=== PATIENT | female | born 1985 | race Two or more races ===

== ENCOUNTER 2017-08-18 15:07 | Emergency (ER) | payer OTHER ==
[~2017-08-18] VITALS: Ht 170.2 cm; Wt 118.3 kg
[2017-08-18 16:10] LABS: BASOPHILS # (AUTO) 0.06 x10^3/uL (0-0.1); BASOPHILS % (AUTO) 1 % (0-1); EOSINOPHILS # (AUTO) 0.11 x10^3/uL (0-0.4); EOSINOPHILS % (AUTO) 1 % (1-7); LYMPHOCYTES # (AUTO) 3.42 x10^3/uL (1-3.4); LYMPHOCYTES % (AUTO) 27 % (22-44); MD NO; MEAN CORPUSCULAR HEMOGLOBIN 26.4 pg (27.0-34.8); MEAN CORPUSCULAR HGB CONC 33.2 g/dL (32.4-35.8); MEAN CORPUSCULAR VOLUME 79.4 fL (80-100); MEAN PLATELET VOLUME 8.3 fL (7.4-10.4); MONOCYTES % (AUTO) 6 % (2-9); NEUTROPHILS # (AUTO) 8.28 x10^3/uL (1.8-6.8); NEUTROPHILS % (AUTO) 65 % (42-75); PLATELET COUNT 335 x10^3/uL (130-400); RED BLOOD COUNT 5.32 x10^6/uL (3.82-5.3); RED CELL DISTRIBUTION WIDTH 15.6 % (9.6-15.2)
[2017-08-18 16:19] LABS: ALANINE AMINOTRANSFERASE 25 U/L (12-78); ALBUMIN 3.6 g/dL (3.4-5.0); ANION GAP 7 mmol/L (5-15); CALCIUM 8.8 mg/dL (8.5-10.1); CHLORIDE 110 mmol/L (98-107)
[2017-08-18] MEDS ORDERED: ONDANSETRON ODT 4 MG ONE (16:21)
[2017-08-18] MEDS ORDERED: MORPHINE SULFATE 4 MG/ML, 1ML ONE (16:21)
[2017-08-18 16:22] LABS: MICROSCOPIC NOT IND
[2017-08-18 16:24] LABS: ALKALINE PHOSPHATASE 142 U/L (45-117); BILIRUBIN,TOTAL 0.5 mg/dL (0.2-1.0); CREATININE 0.68 mg/dL (0.55-1.02); TOTAL PROTEIN 8.4 g/dL (6.4-8.2)
[2017-08-18 16:26] LABS: CULTURE INDICATED? NO
[2017-08-18] MEDS ORDERED: SODIUM CHLORIDE 0.9% 1,000ML IVBOLUS ONE (16:30)
[2017-08-18] MEDS ORDERED: ONDANSETRON ODT 4 MG PO ONE (16:30)
[2017-08-18] MEDS ORDERED: SODIUM CHLORIDE FLUSH 10ML SYR IVF ONE (16:30)
[2017-08-18] MEDS ORDERED: MORPHINE SULFATE 4 MG/ML, 1ML IVPush PRN (16:30)
[2017-08-18] MEDS ORDERED: ONDANSETRON 2MG/ML, 2ML IVPush ONE (16:30)
[2017-08-18 18:33] VITALS: BP 128/73
== END 2017-08-18 18:35 | disposition home or self-care (01) ==
LOC: ED 18:20
DX: R10.31 Right lower quadrant pain (principal)
CPT/HCPCS: 36415; 74177; 76830; 80053; 81003; 84703; 85025; 96361; 96374; 99285; J7030; Q0162

== ENCOUNTER 2018-08-13 20:28 | Emergency (ER) | payer OTHER, MEDICAID ==
[~2018-08-13] VITALS: Ht 170.2 cm; Wt 104.6 kg
--- NOTE | 2018-08-13 20:45 | NUR ---
LATE ENTRY FOR 20:45. PT REPORTS 10/10 CENTER CHEST PAIN THAT COMES AND GOES SINCE THIS MORNING PT REPORTS SHE HAS ALSO HAD A COUGH. PT'S AOX4. RESPS EVEN AND UNLABORED. ALL MONITORS IN PLACE. CALL LIGHT WITHIN REACH.
--- NOTE | 2018-08-13 21:00 | NUR ---
PT IN XRAY.
[2018-08-13 21:09] LABS: BASOPHILS # (AUTO) 0.04 x10^3/uL (0-0.1); BASOPHILS % (AUTO) 0 % (0-1); EOSINOPHILS # (AUTO) 0.25 x10^3/uL (0-0.4); EOSINOPHILS % (AUTO) 2 % (1-7); LYMPHOCYTES # (AUTO) 2.94 x10^3/uL (1-3.4); LYMPHOCYTES % (AUTO) 27 % (22-44); MD NO; MEAN CORPUSCULAR HEMOGLOBIN 27.3 pg (27.0-34.8); MEAN CORPUSCULAR HGB CONC 32.9 g/dL (32.4-35.8); MEAN CORPUSCULAR VOLUME 82.9 fL (80-100); MEAN PLATELET VOLUME 8.4 fL (7.4-10.4); MONOCYTES # (AUTO) 0.89 x10^3/uL (0.2-0.8); MONOCYTES % (AUTO) 8 % (2-9); NEUTROPHILS # (AUTO) 6.67 x10^3/uL (1.8-6.8); NEUTROPHILS % (AUTO) 62 % (42-75); PLATELET COUNT 310 x10^3/uL (130-400); RED BLOOD COUNT 4.63 x10^6/uL (3.82-5.3); RED CELL DISTRIBUTION WIDTH 14.9 % (9.6-15.2)
[2018-08-13 21:16] LABS: ALANINE AMINOTRANSFERASE 23 U/L (12-78); ALBUMIN 3.5 g/dL (3.4-5.0); ANION GAP 7 mmol/L (5-15); CALCIUM 8.6 mg/dL (8.5-10.1); CHLORIDE 110 mmol/L (98-107); CREATININE 0.66 mg/dL (0.55-1.02)
[2018-08-13 21:20] LABS: ALKALINE PHOSPHATASE 120 U/L (45-117); TOTAL PROTEIN 7.8 g/dL (6.4-8.2); TROPONIN I < 0.015 ng/mL (0.000-0.045)
[2018-08-13 21:24] LABS: BILIRUBIN,TOTAL < 0.1 mg/dL (0.2-1.0)
--- NOTE | 2018-08-13 22:00 | NUR ---
PT RESTING IN [facility]. PT'S AOX4. RESPS EVEN AND UNLABORED. ALL MONITORS IN PLACE. CALL LIGHT WITHIN REACH.
[2018-08-13 22:39] VITALS: BP 115/70
--- NOTE | 2018-08-13 22:39 | NUR ---
PT GIVEN DC INSTRUCTIONS AND SCRIPTS. PT EDUCATED REGARDING DC MEDICATIONS. PT AMB TO DC WITH STEADY GAIT. NO ACUTE DISTRESS AT DC.
== END 2018-08-13 22:41 | disposition home or self-care (01) ==
LOC: ED 21:08
DX: R07.89 Other chest pain (principal); J00 Acute nasopharyngitis [common cold]
CPT/HCPCS: 36415; 71046; 80053; 84484; 85025; 93005; 99284

== ENCOUNTER 2020-02-02 12:16 | Emergency (ER) | payer OTHER ==
[~2020-02-02] VITALS: Ht 170.2 cm; Wt 114.0 kg
--- NOTE | 2020-02-02 13:52 | NUR ---
TO ROOM FROM LOBBY. NAD.
--- NOTE | 2020-02-02 13:55 | NUR ---
ASSUMED CARE OF PATIENT. PATIENT C/O A COUGH AND FEVERS. PT IS ON AMOXICILLIN FOR A EAR INFECTION. VS STABLE. NO ACUTE DISTRESS NOTED. CALL LIGHT IN PLACE. WILL CONTINUE TO MONITOR.
--- NOTE | 2020-02-02 13:58 | NUR ---
DR LACY IN ROOM
--- NOTE | 2020-02-02 14:20 | NUR ---
BOTH BLOOD CULTURES DRAWN BEFORE ABX GIVEN
[2020-02-02] MEDS ORDERED: CEFTRIAXONE PMX 1GM/50ML 50 ML ONE (14:22)
[2020-02-02 14:29] LABS: BASOPHILS % (AUTO) 0 % (0-1); EOSINOPHILS % (AUTO) 0 % (1-7); LYMPHOCYTES % (AUTO) 24 % (22-44); MEAN CORPUSCULAR HEMOGLOBIN 27.8 pg (27.0-34.8); MEAN CORPUSCULAR HGB CONC 33.1 g/dL (32.4-35.8); MONOCYTES % (AUTO) 8 % (2-9); NEUTROPHILS % (AUTO) 68 % (42-75); PLATELET COUNT 237 x10^3/uL (130-400); RED BLOOD COUNT 5.21 x10^6/uL (3.82-5.3); RED CELL DISTRIBUTION WIDTH 14.1 % (9.6-15.2)
[2020-02-02] MEDS ORDERED: CEFTRIAXONE PMX 1GM/50ML 50 ML IVPB ONE (14:30)
[2020-02-02] MEDS ORDERED: SODIUM CHLORIDE 0.9% 1,000ML IVBOLUS ONE (14:30)
[2020-02-02] MEDS ORDERED: SODIUM CHLORIDE FLUSH 10ML SYR IVF ONE (14:30)
[2020-02-02 14:35] LABS: ALBUMIN 3.3 g/dL (3.4-5.0); ANION GAP 8 mmol/L (5-15); CALCIUM 8.7 mg/dL (8.5-10.1); CHLORIDE 106 mmol/L (98-107); CREATININE 0.72 mg/dL (0.55-1.02)
[2020-02-02 14:39] LABS: MD NO
[2020-02-02] MEDS ORDERED: IBUPROFEN 600 MG TABLET PO ONE (15:00)
[2020-02-02] MEDS ORDERED: IBUPROFEN 200 MG TABLET ONE (15:11)
--- NOTE | 2020-02-02 15:16 | NUR ---
PT WATCHING TV IN ROOM. VS STABLE. NO ACUTE DISTRESS NOTED. CALL LIGHT IN PLACE. WILL CONTINUE TO MONITOR.
--- NOTE | 2020-02-02 15:36 | NUR ---
DR LACY HAS UPDATED PATIENT. PATIENT TO BE DC.
[2020-02-02 16:26] VITALS: BP 122/78
== END 2020-02-02 16:28 | disposition home or self-care (01) ==
LOC: ED 13:30
DX: U07.1 COVID-19 (principal); J12.89 Other viral pneumonia; R00.0 Tachycardia, unspecified
CPT/HCPCS: 36415; 71045; 80048; 82040; 83605; 85025; 87040; 87635; 93005; 96365; 99283; J0696; J7030

== ENCOUNTER 2020-02-04 11:15 | Inpatient (IN) | payer OTHER ==
[~2020-02-04] VITALS: Ht 170.2 cm; Wt 119.8 kg
[2020-02-04] MEDS ORDERED: ONDANSETRON 2MG/ML, 2ML ONE (11:45)
[2020-02-04] MEDS ORDERED: SODIUM CHLORIDE 0.9% 1,000ML IVBOLUS ONE (12:00)
[2020-02-04] MEDS ORDERED: SODIUM CHLORIDE FLUSH 10ML SYR IVF ONE (12:00)
[2020-02-04] MEDS ORDERED: ONDANSETRON 2MG/ML, 2ML IVPush ONE (12:00)
--- NOTE | 2020-02-04 12:21 | NUR ---
PIV PLACED, LABS DRAWN AND SENT TO LAB WITH LAB STICKER. BODY WORK [employer]IMMER PER JUN. IVF RUNNING. PT CONNECTED TO MONITORING. CALL LIGHT IN REACH. EKG COMPLETE. PT RESTING ON GURNEY. ARCHER.
[2020-02-04 12:24] LABS: BASOPHILS % (AUTO) 0 % (0-1); EOSINOPHILS % (AUTO) 0 % (1-7); LYMPHOCYTES % (AUTO) 28 % (22-44); MEAN CORPUSCULAR HEMOGLOBIN 27.7 pg (27.0-34.8); MEAN PLATELET VOLUME 7.9 fL (7.4-10.4); MONOCYTES % (AUTO) 11 % (2-9); NEUTROPHILS % (AUTO) 61 % (42-75); PLATELET COUNT 241 x10^3/uL (130-400); RED BLOOD COUNT 4.82 x10^6/uL (3.82-5.3)
[2020-02-04 12:29] LABS: ALBUMIN 3.1 g/dL (3.4-5.0); ANION GAP 5 mmol/L (5-15); CALCIUM 8.4 mg/dL (8.5-10.1); CHLORIDE 108 mmol/L (98-107); CREATININE 0.61 mg/dL (0.55-1.02)
[2020-02-04 12:34] LABS: MD NO
--- NOTE | 2020-02-04 12:39 | NUR ---
NEW ORDER FOR BLOOD CX AND ABX. ABX START AFTER BLOOD CX COLLECTED BY LAB.
[2020-02-04] MEDS ORDERED: CEFTRIAXONE PMX 1GM/50ML 50 ML IVPB ONE (13:00)
[2020-02-04] MEDS ORDERED: CEFTRIAXONE PMX 1GM/50ML 50 ML ONE (13:15)
--- NOTE | 2020-02-04 13:19 | NUR ---
IV ABX STARTED PER JUN. 2 SETS BLOOD CX COLLECTED PRIOR TO ADMIN. PT RESTING ON [facility].
[2020-02-04 13:22] LABS: D-DIMER (DIC) 0.6 ug/mlFEU (0.00-0.52); PROTIME 9.7 Seconds (9.6-11.5)
[2020-02-04 13:26] LABS: C-REACTIVE PROTEIN, QUANT 6.01 mg/dL (0.02-0.49)
--- NOTE | 2020-02-04 13:46 | NUR ---
ALL RESULTS ARE BACK AT THIS TIME. CHART UP FOR RECHECK.
[2020-02-04] MEDS ORDERED: KETOROLAC 30 MG/1 ML ONE (14:11)
[2020-02-04] MEDS ORDERED: KETOROLAC 30 MG/1 ML IVPush ONE (14:30)
[2020-02-04 14:32] LABS: TROPONIN I < 0.015 ng/mL (0.000-0.045)
--- NOTE | 2020-02-04 15:01 | NUR ---
ALL RESULTS ARE BACK AT THIS TIME. CHART UP FOR RECHECK.
--- NOTE | 2020-02-04 16:00 | NUR ---
PT COVID MEDICAL HOLD IN ER. PT TRANSFERRED TO HOSPITAL BED.
--- NOTE | 2020-02-04 17:15 | NUR ---
DIET TRAY DELIVERED TO PT. HOSPITALIST AT BEDSIDE.
[2020-02-04] MEDS: LACTATED RINGERS 1,000 ML IV SCH (18:00)
[2020-02-04] MEDS ORDERED: POLYETHYLENE GLYCOL 17 GM PACKET PO PRN (18:00)
[2020-02-04] MEDS ORDERED: ONDANSETRON 2MG/ML, 2ML IVPush PRN (18:00)
[2020-02-04] MEDS ORDERED: BISACODYL 10 MG SUPP PR PRN (18:00)
[2020-02-04] MEDS ORDERED: DEXAMETHASONE 4 MG/ML, 1ML IVPush SCH (18:00)
[2020-02-04] MEDS ORDERED: ONDANSETRON ODT 4 MG PO PRN (18:00)
[2020-02-04] MEDS ORDERED: AZITHROMYCIN 500 MG in SODIUM CHLORIDE 0.9% 250 ML IV SCH (18:00)
[2020-02-04] MEDS ORDERED: morphine SULFATE 10 MG/ML, 1ML IVPush PRN (18:00)
[2020-02-04] MEDS ORDERED: CEFTRIAXONE PMX 1GM/50ML 50 ML IV SCH (18:00)
[2020-02-04] MEDS ORDERED: MELATONIN 5 MG TABLET PO PRN (18:00)
[2020-02-04] MEDS ORDERED: REMDESIVIR 200 MG in SODIUM CHLORIDE 0.9% 250 ML IV ONE (18:30)
[2020-02-04] MEDS ORDERED: DEXAMETHASONE 4 MG/ML, 1ML ONE (18:38)
[2020-02-04] MEDS ORDERED: TOCILIZUMAB 800 MG in SODIUM CHLORIDE 0.9% 60 ML IVPB SCH (19:30)
[2020-02-04 19:38] LABS: BILIRUBIN,TOTAL 0.4 mg/dL (0.2-1.0)
[2020-02-04] MEDS: GUAIFENESIN/COD200MG-20MG/10ML LIQUID PO PRN (19:51)
--- NOTE | 2020-02-04 19:58 | NUR ---
PT RESTING COMFORTABLY ON HOSPITAL BED.
[2020-02-04] MEDS ORDERED: TOCILIZUMAB 400 MG in SODIUM CHLORIDE 0.9% 80 ML IVPB ONE (20:30)
[2020-02-04] MEDS ORDERED: ACETAMINOPHEN 325 MG TABLET ONE (20:30)
[2020-02-04] MEDS: ENOXAPARIN 120MG/0.8ML SQ SCH (20:40)
[2020-02-04] MEDS: ASCORBIC ACID 500 MG TABLET PO SCH (20:40)
--- NOTE | 2020-02-04 20:46 | NUR ---
MEDS ADMIN PER JUN. PT RESTING COMFORTABLY ON HOSPITAL BED. SUZI.
[2020-02-04] MEDS: MELATONIN 5 MG TABLET PO SCH (21:00)
[2020-02-04] MEDS: THIAMINE 100MG TABLET PO SCH (21:00)
[2020-02-04] MEDS ORDERED: HYDROcodone/APAP 5/325 TABLET ONE (21:26)
[2020-02-04] MEDS: HYDROcodone/APAP 5/325 TABLET PO PRN (21:28)
[2020-02-04] MEDS ORDERED: THIAMINE 100MG TABLET ONE (23:04)
[2020-02-04] MEDS ORDERED: MELATONIN 5 MG TABLET ONE (23:05)
--- NOTE | 2020-02-04 23:05 | NUR ---
Assumed care of pt. A&o x4. Pt reports no pain at this time. Resting comfortably on bed. Bed low, side rails up, call light within reach. Remains on continuous O2 monitoring. Afebrile
--- NOTE | 2020-02-05 01:15 | NUR ---
Resting comfortably on bed. Remains on continuous O2 monitoring, O2 high 90s RA. Visible chest rise/fall noted. No s/sx acute distress.
--- NOTE | 2020-02-05 03:30 | NUR ---
Resting comfortably. Visible chest rise/fall noted. No s/sx acute distress. Remains on continuous O2 monitoring
[2020-02-05 04:58] LABS: BASOPHILS % (AUTO) 0 % (0-1); EOSINOPHILS % (AUTO) 0 % (1-7); LYMPHOCYTES % (AUTO) 41 % (22-44); MEAN CORPUSCULAR HEMOGLOBIN 27.6 pg (27.0-34.8); MEAN CORPUSCULAR HGB CONC 33.2 g/dL (32.4-35.8); MONOCYTES % (AUTO) 5 % (2-9); NEUTROPHILS % (AUTO) 54 % (42-75); PLATELET COUNT 257 x10^3/uL (130-400); RED BLOOD COUNT 4.74 x10^6/uL (3.82-5.3); RED CELL DISTRIBUTION WIDTH 14.1 % (9.6-15.2)
[2020-02-05 05:06] LABS: ALBUMIN 2.9 g/dL (3.4-5.0); ANION GAP 5 mmol/L (5-15); CALCIUM 8.4 mg/dL (8.5-10.1); CHLORIDE 111 mmol/L (98-107)
[2020-02-05 05:10] LABS: D-DIMER 0.49 ug/mlFEU (0.00-0.52); INTERNATIONAL NORMALIZED RATIO 0.93 (0.93-1.1); PROTHROMBIN TIME 9.6 Seconds (9.6-11.5)
[2020-02-05] MEDS ORDERED: GUAIFENESIN/DM 200-20MG, 10ML UDC ONE (05:16)
[2020-02-05 05:18] LABS: ALANINE AMINOTRANSFERASE 43 U/L (12-78); ALKALINE PHOSPHATASE 124 U/L (45-117); BILIRUBIN,TOTAL 0.3 mg/dL (0.2-1.0); CHOL/HDL RATIO 3.9; CHOLESTEROL, TOTAL 131 mg/dL (140-239); CREATININE 0.53 mg/dL (0.55-1.02); HDL CHOL % 26 % (28-40); HDL CHOLESTEROL (DIRECT) 34 mg/dL (40-60); LDL CHOLESTEROL,CALCULATED 76 mg/dL (54-169); LDL/HDL RATIO 2.2 (0.5-3.0); TOTAL PROTEIN 7.6 g/dL (6.4-8.2); TRIGLYCERIDES 103 mg/dL (50-200); VLDL CHOLESTEROL 21 mg/dL (0-25)
[2020-02-05] MEDS: GUAIFENESIN/COD200MG-20MG/10ML LIQUID PO PRN (05:32)
[2020-02-05 05:42] LABS: MD SCAN
--- NOTE | 2020-02-05 05:46 | NUR ---
Pt reports increased dry cough. Medicated with robitussin as per order, see eMAR for additional details. Remains on continuous O2 monitoring, O2 high 90s RA. No s/sx acute respiratory distress. No use of accessory muscles noted
--- NOTE | 2020-02-05 07:00 | NUR ---
REPORT RECEIVED FROM ERNESTO NG
--- NOTE | 2020-02-05 07:00 | NUR ---
PHONE R Addendum: 02/05/20 at 0839 by DEBO REPORT RECEIVED FROM ERNESTO NG
--- NOTE | 2020-02-05 07:11 | NUR ---
PHARMACY CONTACTED REGARDING LOVENOX. LOVENOX TO BE TUBED.
[2020-02-05] MEDS ORDERED: PANTOPRAZOLE 20MG TABLET ONE (08:30)
--- NOTE | 2020-02-05 08:30 | NUR ---
DELAY IN NOTE, PT CARE. PT FOUND RESTING IN BED. PT AWAKENED TO RN PRESCENCE. PT STATES SHE HAS UPPER LEFT CHEST PAIN THAT IS ALSO PRESENT IN HER LEFT ARM. PT'S LR FLUID NOT INFUSING. NOTED TO BE CLAMPED OFF. FLUIDS RESTARTED. IV LINE PATENT. RECONTACTED PHARMACY ABOUT LOVENOX, PHARMACY STATES THEY ARE WORKING ON IT.
[2020-02-05] MEDS: PANTOPRAZOLE 40MG TABLET PO SCH (08:35)
--- NOTE | 2020-02-05 08:39 | NUR ---
PT FOUND RESTING WITH EYES CLOSED. PT STATES SHE IS HAVING CHEST PAIN, NO SOB. PT VSS. BREAKFAST TRAY DELIVERED.
[2020-02-05] MEDS ORDERED: THIAMINE 100MG TABLET ONE (09:22)
[2020-02-05] MEDS: CHOLECALCIFEROL 5,000u TAB PO SCH (09:26)
[2020-02-05] MEDS: ZINC SULFATE 220 MG CAPSULE PO SCH (09:27)
[2020-02-05] MEDS: ASCORBIC ACID 500 MG TABLET PO SCH ×2 (09:27→17:28)
[2020-02-05] MEDS: THIAMINE 100MG TABLET PO SCH ×2 (09:27→20:02)
[2020-02-05] MEDS: ENOXAPARIN 120MG/0.8ML SQ SCH ×2 (09:27→20:02)
--- NOTE | 2020-02-05 11:13 | NUR ---
Break RN note: Pt resting in bed, looking at her phone, SUZI, denies needs.
[2020-02-05] MEDS ORDERED: CEFTRIAXONE PMX 1GM/50ML 50 ML ONE (12:50)
[2020-02-05] MEDS: CEFTRIAXONE PMX 1GM/50ML 50 ML IV SCH (12:57)
--- NOTE | 2020-02-05 12:59 | NUR ---
PT RESTING IN BED, ON PHONE. ABX HUNG AND INFUSING.
--- NOTE | 2020-02-05 14:28 | NUR ---
PHONE REPORT GIVEN TO ERNESTO VICKERS
[2020-02-05 15:02] LABS: BASOPHILS % (AUTO) 0 % (0-1); EOSINOPHILS % (AUTO) 0 % (1-7); LYMPHOCYTES % (AUTO) 36 % (22-44); MEAN CORPUSCULAR HEMOGLOBIN 27.4 pg (27.0-34.8); MEAN CORPUSCULAR HGB CONC 32.9 g/dL (32.4-35.8); MEAN PLATELET VOLUME 7.9 fL (7.4-10.4); MONOCYTES % (AUTO) 8 % (2-9); NEUTROPHILS % (AUTO) 57 % (42-75); PLATELET COUNT 264 x10^3/uL (130-400); RED BLOOD COUNT 4.52 x10^6/uL (3.82-5.3); RED CELL DISTRIBUTION WIDTH 13.8 % (9.6-15.2)
[2020-02-05 15:12] LABS: MD NO
[2020-02-05 15:34] VITALS: BP 99/65
[2020-02-05 17:26] LABS: MICROSCOPIC NOT IND
[2020-02-05] MEDS ORDERED: REMDESIVIR 100 MG in SODIUM CHLORIDE 0.9% 250 ML IV SCH (18:00)
[2020-02-05 18:34] VITALS: BP 121/81
[2020-02-05] MEDS: REMDESIVIR 100 MG in SODIUM CHLORIDE 0.9% 250 ML IVPB SCH (20:01)
[2020-02-05] MEDS: DEXAMETHASONE 4 MG/ML, 1ML IVPush SCH (20:02)
[2020-02-05] MEDS: MELATONIN 5 MG TABLET PO SCH (20:02)
[2020-02-05] MEDS: ACETAMINOPHEN 325 MG TABLET PO PRN (20:38)
[2020-02-05] MEDS: AZITHROMYCIN 500 MG in SODIUM CHLORIDE 0.9% 250 ML IV SCH ×2 (22:29→23:29)
[2020-02-06 01:14] VITALS: BP 99/68
[2020-02-06 06:03] LABS: CALCIUM 8.9 mg/dL (8.5-10.1); CHLORIDE 112 mmol/L (98-107)
[2020-02-06 06:09] LABS: ALANINE AMINOTRANSFERASE 36 U/L (12-78); ALBUMIN 2.8 g/dL (3.4-5.0); ALKALINE PHOSPHATASE 111 U/L (45-117); ANION GAP 7 mmol/L (5-15); BILIRUBIN,TOTAL 0.2 mg/dL (0.2-1.0); TOTAL PROTEIN 7.1 g/dL (6.4-8.2)
[2020-02-06] MEDS: LACTATED RINGERS 1,000 ML IV SCH ×2 (06:17→20:24)
[2020-02-06 06:57] VITALS: BP 98/62
[2020-02-06] MEDS: PANTOPRAZOLE 40MG TABLET PO SCH (09:49)
[2020-02-06] MEDS: ASCORBIC ACID 500 MG TABLET PO SCH ×2 (09:50→17:17)
[2020-02-06] MEDS: THIAMINE 100MG TABLET PO SCH ×2 (09:50→20:23)
[2020-02-06] MEDS: ZINC SULFATE 220 MG CAPSULE PO SCH (09:50)
[2020-02-06] MEDS: ENOXAPARIN 120MG/0.8ML SQ SCH (09:50)
[2020-02-06] MEDS: CHOLECALCIFEROL 5,000u TAB PO SCH (09:50)
[2020-02-06 12:45] VITALS: BP 111/64
[2020-02-06] MEDS: ACETAMINOPHEN 325 MG TABLET PO PRN ×2 (12:54→20:23)
[2020-02-06] MEDS: GUAIFENESIN/COD200MG-20MG/10ML LIQUID PO PRN (13:17)
[2020-02-06] MEDS: CEFTRIAXONE PMX 1GM/50ML 50 ML IV SCH (13:17)
[2020-02-06] MEDS ORDERED: GUAIFENESIN/COD200MG-20MG/10ML LIQUID PO PRN (15:30)
[2020-02-06 18:16] VITALS: BP 110/72
[2020-02-06] MEDS: REMDESIVIR 100 MG in SODIUM CHLORIDE 0.9% 250 ML IVPB SCH (20:23)
[2020-02-06] MEDS: MELATONIN 5 MG TABLET PO SCH (20:23)
[2020-02-06] MEDS: DEXAMETHASONE 4 MG/ML, 1ML IVPush SCH (20:23)
[2020-02-06] MEDS: ENOXAPARIN 40 MG/0.4 ML SQ SCH (20:24)
[2020-02-06] MEDS: AZITHROMYCIN 500 MG in SODIUM CHLORIDE 0.9% 250 ML IV SCH (22:53)
[2020-02-07 00:01] VITALS: BP 105/70
[2020-02-07 06:23] LABS: BASOPHILS % (AUTO) 0 % (0-1); EOSINOPHILS % (AUTO) 0 % (1-7); LYMPHOCYTES % (AUTO) 25 % (22-44); MEAN CORPUSCULAR HEMOGLOBIN 27.4 pg (27.0-34.8); MEAN CORPUSCULAR HGB CONC 32.9 g/dL (32.4-35.8); MEAN PLATELET VOLUME 7.9 fL (7.4-10.4); MONOCYTES % (AUTO) 4 % (2-9); NEUTROPHILS % (AUTO) 70 % (42-75); PLATELET COUNT 341 x10^3/uL (130-400); RED BLOOD COUNT 4.63 x10^6/uL (3.82-5.3); RED CELL DISTRIBUTION WIDTH 13.9 % (9.6-15.2)
[2020-02-07 06:33] LABS: ALBUMIN 2.9 g/dL (3.4-5.0); ANION GAP 6 mmol/L (5-15); CALCIUM 8.3 mg/dL (8.5-10.1); CHLORIDE 109 mmol/L (98-107)
[2020-02-07 06:42] LABS: ALANINE AMINOTRANSFERASE 47 U/L (12-78); ALKALINE PHOSPHATASE 106 U/L (45-117); BILIRUBIN,TOTAL 0.3 mg/dL (0.2-1.0); C-REACTIVE PROTEIN, QUANT 0.83 mg/dL (0.02-0.49); CREATININE 0.55 mg/dL (0.55-1.02); TOTAL PROTEIN 7.4 g/dL (6.4-8.2)
[2020-02-07 06:43] LABS: MD NO
[2020-02-07 07:06] LABS: D-DIMER 0.26 ug/mlFEU (0.00-0.52); INTERNATIONAL NORMALIZED RATIO 0.97 (0.93-1.1)
[2020-02-07 08:20] VITALS: BP 114/75
[2020-02-07] MEDS: PANTOPRAZOLE 40MG TABLET PO SCH (09:31)
[2020-02-07] MEDS: ZINC SULFATE 220 MG CAPSULE PO SCH (09:31)
[2020-02-07] MEDS: CHOLECALCIFEROL 5,000u TAB PO SCH (09:31)
[2020-02-07] MEDS: ASCORBIC ACID 500 MG TABLET PO SCH ×2 (09:31→16:59)
[2020-02-07] MEDS: THIAMINE 100MG TABLET PO SCH ×2 (09:31→21:15)
[2020-02-07] MEDS: ENOXAPARIN 40 MG/0.4 ML SQ SCH ×2 (09:32→21:16)
[2020-02-07 12:19] VITALS: BP 122/84
[2020-02-07] MEDS: CEFTRIAXONE PMX 1GM/50ML 50 ML IV SCH (13:57)
[2020-02-07] MEDS: LACTATED RINGERS 1,000 ML IV SCH (13:58)
[2020-02-07 20:50] VITALS: BP 103/66
[2020-02-07] MEDS: MELATONIN 5 MG TABLET PO SCH (21:15)
[2020-02-07] MEDS: DEXAMETHASONE 4 MG/ML, 1ML IVPush SCH (21:15)
[2020-02-07] MEDS: REMDESIVIR 100 MG in SODIUM CHLORIDE 0.9% 250 ML IVPB SCH (21:15)
[2020-02-07] MEDS: AZITHROMYCIN 500 MG in SODIUM CHLORIDE 0.9% 250 ML IV SCH (23:34)
[2020-02-08 01:39] VITALS: BP 109/67
[2020-02-08 06:40] LABS: ALANINE AMINOTRANSFERASE 116 U/L (12-78); ALBUMIN 2.9 g/dL (3.4-5.0); ANION GAP 4 mmol/L (5-15); CALCIUM 8.5 mg/dL (8.5-10.1); CHLORIDE 110 mmol/L (98-107); CREATININE 0.61 mg/dL (0.55-1.02)
[2020-02-08 06:42] LABS: ALKALINE PHOSPHATASE 110 U/L (45-117); BILIRUBIN,TOTAL 0.3 mg/dL (0.2-1.0); TOTAL PROTEIN 7.4 g/dL (6.4-8.2)
[2020-02-08] MEDS: ENOXAPARIN 40 MG/0.4 ML SQ SCH ×2 (08:15→21:22)
[2020-02-08] MEDS: PANTOPRAZOLE 40MG TABLET PO SCH (08:15)
[2020-02-08] MEDS: ZINC SULFATE 220 MG CAPSULE PO SCH (08:16)
[2020-02-08] MEDS: CHOLECALCIFEROL 5,000u TAB PO SCH (08:16)
[2020-02-08] MEDS: ASCORBIC ACID 500 MG TABLET PO SCH ×2 (08:16→16:38)
[2020-02-08] MEDS: THIAMINE 100MG TABLET PO SCH ×2 (08:16→21:22)
[2020-02-08 08:21] VITALS: BP 108/75
[2020-02-08 13:12] VITALS: BP 131/87
[2020-02-08] MEDS: CEFTRIAXONE PMX 1GM/50ML 50 ML IV SCH (13:46)
[2020-02-08 20:29] VITALS: BP 128/72
[2020-02-08] MEDS: REMDESIVIR 100 MG in SODIUM CHLORIDE 0.9% 250 ML IVPB SCH (21:21)
[2020-02-08] MEDS: MELATONIN 5 MG TABLET PO SCH (21:21)
[2020-02-08] MEDS: DEXAMETHASONE 4 MG/ML, 1ML IVPush SCH (21:22)
[2020-02-08] MEDS: HYDROcodone/APAP 5/325 TABLET PO PRN (21:22)
[2020-02-08] MEDS: AZITHROMYCIN 500 MG in SODIUM CHLORIDE 0.9% 250 ML IV SCH (23:38)
[2020-02-09 00:01] VITALS: BP 100/62
[2020-02-09] MEDS: CHOLECALCIFEROL 5,000u TAB PO SCH (08:19)
[2020-02-09] MEDS: ASCORBIC ACID 500 MG TABLET PO SCH (08:19)
[2020-02-09] MEDS: THIAMINE 100MG TABLET PO SCH (08:19)
[2020-02-09] MEDS: ZINC SULFATE 220 MG CAPSULE PO SCH (08:19)
[2020-02-09] MEDS: PANTOPRAZOLE 40MG TABLET PO SCH (08:19)
[2020-02-09] MEDS: ENOXAPARIN 40 MG/0.4 ML SQ SCH (08:20)
[2020-02-09 09:08] VITALS: BP 112/77
[2020-02-09] MEDS ORDERED: ZINC220C7 PO (10:57)
[2020-02-09] MEDS ORDERED: ASCO1500 PO (10:57)
[2020-02-09] MEDS ORDERED: CHOL500045 PO (10:57)
== END 2020-02-09 12:35 | disposition home or self-care (01) | DRG 177 ==
LOC: ED 14:05 → EDIP 15:39 → 4EST 02-05 15:21
PROVIDERS: ADMIT Hospitalist; ATTEND Hospitalist
PROC: XW033H5 Introduction of Tocilizumab into Peripheral Vein, Percutaneous Approach, New Technology Group 5 (ICD-10-PCS; principal; 2020-02-04)
DX: U07.1 COVID-19 (principal); J96.01 Acute respiratory failure with hypoxia; J12.89 Other viral pneumonia; J98.11 Atelectasis; Z90.49 Acquired absence of other specified parts of digestive tract
CPT/HCPCS: 36415; 36600; 71045; 71275; 80048; 80053; 80061; 81003; 82040; 82247; 82728; 82803; 83605; 83615; 83735; 84075; 84100; 84145; 84443; 84450; 84460; 84484; 84703; 85025; 85049; 85379; 85384; 85610; 85730; 86140; 87040; 93005; 96361; 96365; 96375; G0378; J0456; J0696; J1100; J1650; J1885; J2405; J3262; J2270; J7030; J7050; J7120

== ENCOUNTER 2020-07-18 11:14 | Emergency (ER) | payer OTHER ==
[~2020-07-18] VITALS: Ht 170.2 cm; Wt 94.0 kg
[~2020-07-18 11:14] MED LIST: ASCO1500 PO; CHOL500045 PO; ZINC220C7 PO
[2020-07-18] MEDS ORDERED: SODIUM CHLORIDE FLUSH 10ML SYR IVF ONE ×2 (13:00→14:00)
[2020-07-18 13:02] LABS: BASOPHILS % (AUTO) 0 % (0-1); EOSINOPHILS % (AUTO) 0 % (1-7); LYMPHOCYTES % (AUTO) 32 % (22-44); MEAN CORPUSCULAR HEMOGLOBIN 27.8 pg (27.0-34.8); MEAN CORPUSCULAR HGB CONC 33.4 g/dL (32.4-35.8); MEAN PLATELET VOLUME 8.5 fL (7.4-10.4); MONOCYTES % (AUTO) 5 % (2-9); NEUTROPHILS % (AUTO) 62 % (42-75); PLATELET COUNT 250 x10^3/uL (130-400); RED BLOOD COUNT 4.72 x10^6/uL (3.82-5.3); RED CELL DISTRIBUTION WIDTH 14.2 % (9.6-15.2)
[2020-07-18 13:04] LABS: MD NO
[2020-07-18 13:13] LABS: ALBUMIN 3.7 g/dL (3.4-5.0); ANION GAP 4 mmol/L (5-15); CALCIUM 8.6 mg/dL (8.5-10.1); CHLORIDE 111 mmol/L (98-107)
[2020-07-18 13:18] LABS: ALANINE AMINOTRANSFERASE 18 U/L (12-78); ALKALINE PHOSPHATASE 112 U/L (45-117); BILIRUBIN,TOTAL 0.3 mg/dL (0.2-1.0); CREATININE 0.57 mg/dL (0.55-1.02); TOTAL PROTEIN 7.5 g/dL (6.4-8.2)
--- NOTE | 2020-07-18 13:20 | NUR ---
HEDIS COORDINATOR: PT TO ROOM FROM [facility]
--- NOTE | 2020-07-18 13:39 | NUR ---
Pt received [employer] COVID shot on Wednesday, 6 hours later she began throwing up. Also complains of loose stools. Pt crying when explaining problems to MD Wang. Connected to BP and O2 montiors.
--- NOTE | 2020-07-18 13:39 | NUR ---
MD Grause to bedside for eval.
[2020-07-18] MEDS ORDERED: SODIUM CHLORIDE 0.9% 1,000ML IVBOLUS ONE (14:00)
[2020-07-18] MEDS ORDERED: ONDANSETRON 2MG/ML, 2ML IVPush ONE (14:00)
[2020-07-18] MEDS ORDERED: FAMOTIDINE 20 MG/2 ML IVPush ONE (14:00)
[2020-07-18] MEDS ORDERED: ONDANSETRON 2MG/ML, 2ML ONE (14:05)
[2020-07-18] MEDS ORDERED: FAMOTIDINE 20 MG/2 ML ONE (14:05)
[2020-07-18 14:16] LABS: MICROSCOPIC INDICATED
--- NOTE | 2020-07-18 14:20 | NUR ---
Pt medicated, positioned to comfort. Lights off to promote rest.
[2020-07-18 16:52] VITALS: BP 121/80
== END 2020-07-18 16:54 | disposition home or self-care (01) ==
LOC: ED 16:45
DX: R11.2 Nausea with vomiting, unspecified (principal); R19.7 Diarrhea, unspecified; R10.9 Unspecified abdominal pain
CPT/HCPCS: 36415; 80053; 81001; 84703; 85025; 87077; 87086; 87186; 96361; 96374; 96375; 99284; J2405; J7030

== ENCOUNTER 2020-08-20 19:06 | Emergency (ER) | payer OTHER ==
[~2020-08-20] VITALS: Ht 170.2 cm; Wt 90.8 kg
[2020-08-20] MEDS ORDERED: SODIUM CHLORIDE FLUSH 10ML SYR IVF ONE (20:00)
[2020-08-20 20:35] LABS: ALBUMIN 3.6 g/dL (3.4-5.0); ANION GAP 6 mmol/L (5-15); CALCIUM 8.5 mg/dL (8.5-10.1); CHLORIDE 108 mmol/L (98-107); CREATININE 0.56 mg/dL (0.55-1.02)
[2020-08-20 20:38] LABS: HCG UR SG 1.021 (1.003-1.030); MICROSCOPIC AUTO
[2020-08-20 20:50] LABS: BASOPHILS % (AUTO) 1 % (0-1); EOSINOPHILS % (AUTO) 1 % (1-7); LYMPHOCYTES % (AUTO) 41 % (22-44); MEAN CORPUSCULAR HEMOGLOBIN 28.1 pg (27.0-34.8); MEAN CORPUSCULAR HGB CONC 33.4 g/dL (32.4-35.8); MEAN PLATELET VOLUME 8.5 fL (7.4-10.4); MONOCYTES % (AUTO) 6 % (2-9); NEUTROPHILS % (AUTO) 52 % (42-75); PLATELET COUNT 237 x10^3/uL (130-400); RED BLOOD COUNT 4.49 x10^6/uL (3.82-5.3); RED CELL DISTRIBUTION WIDTH 14.9 % (9.6-15.2)
[2020-08-20 20:54] LABS: MD NO
[2020-08-20] MEDS ORDERED: OMNIPAQUE 350 MG/ML, 100ML BOTTLE ONE (21:40)
[2020-08-20] MEDS ORDERED: CEFTRIAXONE 1,000 MG in DEXTROSE 5% 50 ML IVPB ONE (22:30)
--- NOTE | 2020-08-20 22:37 | NUR ---
NO BC BEFORE ABX. PT DENIES NEED FOR PAIN MEDS
[2020-08-20 22:38] VITALS: BP 118/78
== END 2020-08-20 23:29 | disposition home or self-care (01) ==
LOC: ED 22:33
DX: N30.00 Acute cystitis without hematuria (principal); K62.5 Hemorrhage of anus and rectum; R10.31 Right lower quadrant pain; R10.32 Left lower quadrant pain; M54.5 Low back pain; Z90.49 Acquired absence of other specified parts of digestive tract
CPT/HCPCS: 36415; 74177; 80048; 81001; 81025; 82040; 83690; 85025; 87077; 87086; 87186; 96365; 99285; J0696; Q9967

== ENCOUNTER 2020-08-26 07:15 | Emergency (ER) | payer OTHER ==
[~2020-08-26] VITALS: Ht 170.2 cm; Wt 90.3 kg
--- NOTE | 2020-08-26 07:35 | NUR ---
PT AMBULATORY TO ROOM FROM TRIAGE, PT CHANGED INTO GOWN. MONITORS IN PLACE. MED STUDENT AT BS. CALL LIGHT WITHIN REACH
--- NOTE | 2020-08-26 07:59 | NUR ---
PT AMBULATORY TO BR WITH UPRIGHT, STEADY GAIT
[2020-08-26 08:16] LABS: MICROSCOPIC NOT IND
[2020-08-26 08:28] LABS: BASOPHILS % (AUTO) 1 % (0-1); EOSINOPHILS % (AUTO) 1 % (1-7); LYMPHOCYTES % (AUTO) 31 % (22-44); MEAN CORPUSCULAR HEMOGLOBIN 28.4 pg (27.0-34.8); MEAN CORPUSCULAR HGB CONC 33.1 g/dL (32.4-35.8); MEAN PLATELET VOLUME 8.4 fL (7.4-10.4); MONOCYTES % (AUTO) 6 % (2-9); NEUTROPHILS % (AUTO) 62 % (42-75); PLATELET COUNT 238 x10^3/uL (130-400); RED BLOOD COUNT 4.58 x10^6/uL (3.82-5.3); RED CELL DISTRIBUTION WIDTH 15.2 % (9.6-15.2)
--- NOTE | 2020-08-26 08:39 | NUR ---
PT RESTING ON RUFUS HARRISN/VSS. CALL LIGHT WITHIN REACH. NO NEEDS AT THIS TIME
[2020-08-26 09:02] LABS: ALANINE AMINOTRANSFERASE 17 U/L (12-78); ALBUMIN 3.6 g/dL (3.4-5.0); ANION GAP 4 mmol/L (5-15); CALCIUM 8.8 mg/dL (8.5-10.1); CHLORIDE 110 mmol/L (98-107); CREATININE 0.54 mg/dL (0.55-1.02)
[2020-08-26 09:04] LABS: ALKALINE PHOSPHATASE 122 U/L (45-117); BILIRUBIN,TOTAL 0.5 mg/dL (0.2-1.0); TOTAL PROTEIN 7.7 g/dL (6.4-8.2)
--- NOTE | 2020-08-26 09:20 | NUR ---
PT STATES SHE IS UNABLE TO PROVIDE STOOL SAMPLE. ERP AWARE
--- NOTE | 2020-08-26 09:46 | NUR ---
PT RESTING ON GURNEY CALMLY, NADN/VSS. COMFORT MEASURES PROVIDED. CALL LIGHT WITHIN REACH. NO NEEDS AT THIS TIME
--- NOTE | 2020-08-26 10:35 | NUR ---
PT TO US
--- NOTE | 2020-08-26 11:06 | NUR ---
PT BACK FROM ULTRASOUND
--- NOTE | 2020-08-26 11:09 | NUR ---
PT OPAL HARRIS CALMLY. NADN/VSS. CALL LIGHT WITHIN REACH. NO NEEDS AT THIS TIME
[2020-08-26 12:15] VITALS: BP 100/66
--- NOTE | 2020-08-26 12:15 | NUR ---
PT RESTING CALMLY ON GURNEY, NADN/VSS. NO NEW COMPLAINTS. AT BS. CALL LIGHT WITHIN REACH
== END 2020-08-26 12:38 | disposition home or self-care (01) ==
LOC: ED 07:33
DX: K92.2 Gastrointestinal hemorrhage, unspecified (principal); R10.32 Left lower quadrant pain
CPT/HCPCS: 36415; 76830; 80053; 81003; 83605; 83690; 85025; 99285